=== PATIENT | female | born 1950 | race Caucasian/White ===

== ENCOUNTER 2016-10-05 12:52 | Emergency (ER) | payer OTHER ==
[~2016-10-05] VITALS: Ht 162.6 cm; Wt 65.4 kg
[2016-10-05] MEDS ORDERED: SODIUM CHLORIDE 0.9% 1,000 ML IV ONE (13:50)
[2016-10-05] MEDS ORDERED: ASPIRIN 81 MG TABLET CHEW ONE (13:59)
[2016-10-05] MEDS ORDERED: ASPIRIN 81 MG TABLET CHEW PO ONE (14:00)
[2016-10-05] MEDS ORDERED: SODIUM CHLORIDE FLUSH 10ML SYR IVF ONE (14:00)
[2016-10-05 14:30] LABS: BLOOD UREA NITROGEN 15 mg/dL (7-18)
[2016-10-05 14:35] LABS: IS PT STATUS REG ER OR PRE ER? YES
[2016-10-05 17:11] LABS: IS PT STATUS REG ER OR PRE ER? YES
[2016-10-05 17:51] VITALS: BP 145/75
== END 2016-10-05 17:53 | disposition home or self-care (01) ==
LOC: ED 14:33
DX: R55 Syncope and collapse (principal)
CPT/HCPCS: 36415; 71010; 80048; 82040; 84484; 85025; 93005; 96360; 96361; 99285; J7030

== ENCOUNTER → 2018-06-20 | Outpatient (CLI) | payer OTHER | END | disposition home or self-care (01) | LOC: CFH 09:03 | PROVIDERS: ATTEND Family Medicine | DX: Z13.820 Encounter for screening for osteoporosis (principal); M85.88 Other specified disorders of bone density and structure, other site | CPT/HCPCS: 77080 ==

== ENCOUNTER 2019-12-20 17:00 | Emergency (ER) | payer MEDICARE ==
[~2019-12-20] VITALS: Ht 162.6 cm; Wt 64.3 kg
--- NOTE | 2019-12-20 17:49 | NUR ---
OPHTHO. CALLED @ 1748. OPHTHO CALLED BACK @ 1750
--- NOTE | 2019-12-20 19:38 | NUR ---
CARROLL HAS SEEN PATIENT AND MADE EVALUATION.
[2019-12-20 20:09] VITALS: BP 131/52
== END 2019-12-20 20:27 | disposition home or self-care (01) ==
LOC: ED 18:11
DX: H43.811 Vitreous degeneration, right eye (principal)
CPT/HCPCS: 99282

== ENCOUNTER 2020-05-01 07:47 | Emergency (ER) | payer MEDICARE ==
[~2020-05-01] VITALS: Ht 162.6 cm; Wt 64.2 kg
[2020-05-01] MEDS ORDERED: SODIUM CHLORIDE FLUSH 10ML SYR IVF ONE (09:00)
[2020-05-01] MEDS ORDERED: CLINDAMYCIN PMX 600MG/50ML 50 ML IVPB ONE (09:00)
[2020-05-01] MEDS ORDERED: CLINDAMYCIN PMX 600MG/50ML 50 ML ONE (09:09)
--- NOTE | 2020-05-01 09:28 | NUR ---
IV ESTABLISHED. ABX INITIATED. NO BC PER ERP
[2020-05-01 10:22] VITALS: BP 147/60
--- NOTE | 2020-05-01 10:22 | NUR ---
ABX FINISHED. NO S/S OF ABX RXN NOTED. POC IS DC. AWAITING DC INSTRUCTIONS
--- NOTE | 2020-05-01 10:51 | NUR ---
DC EDUCATION PROVIDED, PT DEMONSTRATES UNDERSTANDING. PT AMBULATED STEADILY TO DC WT RN AND FRIEND
== END 2020-05-01 10:52 | disposition home or self-care (01) ==
LOC: ED 09:19
DX: L03.213 Periorbital cellulitis (principal)
CPT/HCPCS: 96365; 99284